=== PATIENT | female | born 1970 | race Hispanic/Latino ===

== ENCOUNTER → 2023-07-22 | Emergency (ER) | payer SELFPAY ==
[~2023-07-22] MED LIST: FAMOTIDINE 20 MG/2 ML VIAL IV ONE; KETOROLAC 30 MG/ML INJ ONE; METOCLOPRAMIDE 10 MG/2mL INJ ONE; MORPHINE 4 MG/ML SYR ONE; NA CHLORIDE 0.9% 2,000 ML ONE; ONDANSETRON 4 MG/2 ML VIAL ONE
--- OUTSIDE RECORDS SUMMARY | 2023-07-22 22:42 | XMS REPORT | Continuity of Care Document ---
Author Name Unknown Address [address] [facility] [address]. [address] [place] [address] [facility] thconnect Address [address] [facility]. [address] [place] [address] Care Team Providers Care Extension Service Agent Name Role Phone PCP, PATIENT DOES NOT HAVE A Primary Care Physic roxana Unavailable Amena Leyva LMSW Attending Clinician U SUBHA Crespo Attending Clinician Unavailable Pgy3 Attending Clinician Unavailable Subha Arthur MD Attending Clinician [phone] Doctor Unassigned, [place] Attending Clinician U Juliana Banks Attending Clinician [phone] LAURA HARRISON Attending Clinician Unavailable Pgy4 Attending Clinician Unavailable Laura Harrison MD Attending Clinician [phone] Payers Payer Name Policy Type Policy Number Effective Date Expirati on Date Source Problems Condition Name Condition Details Condition Category Status Onset Date Resolution Date Last Treatment Date Treating Clinician Comments Source Endometria l cancer Endometria l cancer Disease Active 2022-05 00:00: 00 [facility] Menstrual problem Menstrual problem Disease Active 10-20 00:00: 00 [facility] Allergies, Adverse Reactions, Alerts Allergy Name Allergy Type Status Severity Reaction(s) Onset Date Inactive Date Treating Clinician Comments Source NO KNOWN ALLERGIE S Drug Class Active [facility] Social History Social Habit Start Date Stop Date Quantity Comments Source [facility] 2023-04-11 00:00:00 2023-04-11 00:00:00 Current non-drinker of alcohol (finding) [facility] History of Social function 2023-04-11 00:00:00 2023-04-11 00:00:00 [facility] Tobacco use and exposure 2013-10-19 00:00:00 2013-10-19 00:00:00 Smokeless tobacco non-user [facility] Sex Assigned At 1970 00:00:00 1970 00:00:00 [facility] Smoking Status Start Date Stop Date Source Never smoked tobacco [facility] Medications Ordered Medication Name Filled Medication Name Start Date Stop Date Current Medication? Ordering Clinician Indication Dosage Frequency Signature (SIG) Comments Components Source levonorgest reL (MIRENA) IUD 1 Device 2022-05 20:45: 00 04-11 20:12 :56 No [id number] 1{devic e} [facility] levonorgest reL (MIRENA) IUD 1 Device 2022-05 20:45: 00 04-11 20:12 :56 No [id number] 1{devic e} [facility] levonorgest reL (MIRENA) IUD 1 Device 2022-05 20:45: 00 04-11 20:12 :56 No [id number] 1{devic e} [facility] levonorgest reL (LILETTA) IUD 1 Device 2022-05 20:30: 00 04-11 19:56 :14 No [id number] 1{devic e} [facility] levonorgest reL (LILETTA) IUD 1 Device 2022-05 2 20:30: 00 04-11 19:56 :14 No [id number] 1{devic e} [facility] levonorgest reL (LILETTA) IUD 1 Device 2022-05 20:30: 00 04-11 19:56 :14 No [id number] 1{devic e} [facility] megestroL 40 mg tablet 2022-05 2 00:00: 00 07-10 05:59 :00 No [id number] 80mg Take 2 tablets by mouth 4 (four) times daily [facility] megestroL 40 mg tablet 2022-05 00:00: 00 07-10 05:59 :00 No [id number] 80mg Take 2 tablets by mouth 4 (four) times daily [facility] megestroL 40 mg tablet 2022-05 00:00: 00 07-10 05:59 :00 No [id number] 80mg Take 2 tablets by mouth 4 (four) times daily [facility] megestroL 40 mg tablet 2022-05 00:00: 00 07-10 05:59 :00 No [id number] 80mg Take 2 tablets by mouth 4 (four) times daily [facility] Immunizations Ordered Immunization Name Filled Immunization Name Date Status Comments Source TDAP Unknown Completed [facility] TDAP Unknown Completed [facility] TDAP Unknown Completed [facility] TDAP Unknown Completed [facility] TDAP Unknown Completed [facility] TDAP Unknown Completed [facility] TDAP Unknown Completed [facility] TDAP Unknown Completed [facility] TDAP Unknown Completed [facility] TDAP Unknown Completed [facility] Vital Signs Vital Name Observation Time Observation Value Comments S daniel Systolic blood pressure 2023-04-11 19:27:00 119 mm[Hg] [facility] Diastolic blood pressure 2023-04-11 19:27:00 62 mm[Hg] [facility] Heart rate 2023-04-11 19:27:00 70 /min [facility] Body temperature 2023-04-11 19:27:00 35.78 Arabella [facility] Body height 2023-04-11 19:27:00 154.9 cm [facility] Body weight 2023-04-11 19:27:00 91.173 kg [facility] BMI 2023-04-11 19:27:00 37.98 kg/m2 [facility] Systolic blood pressure 2023-03-28 20:09:00 138 mm[Hg] [facility] Diastolic blood pressure 2023-03-28 20:09:00 87 mm[Hg] Sears o [facility] Heart rate 2023-03-28 20:09:00 75 /min [facility] Body temperature 2023-03-28 20:09:00 36 Arabella [facility] Respiratory rate 2023-03-28 20:09:00 20 /min [facility] Body height 2023-03-28 20:09:00 154.9 cm [facility] Body weight 2023-03-28 20:09:00 92.488 kg [facility] BMI 2023-03-28 20:09:00 38.53 kg/m2 [facility] Procedures Procedure Date / Time Performed Performing Clinicia n Source POCT TEST 2023-04-11 19:29:00 Subha Arthur [facility] EXTERNAL PROVIDER RECORDS 2023-04-11 06:01:00 Doctor Unassigned, [place] [facility] HIGH RISK HPV-THIN PREP 2023-03-28 21:00:00 Paula Valencia [facility] PAP SMEAR-LIQUID BASED-CP 2023-03-28 21:00:00 Paula Valencia [facility] CONSENT/REFUSAL FOR DIAGNOSIS AND TREATMENT 2023-03-28 19:37:07 Doctor Unassigned, [place] [facility] Encounters Start Date/Time End Date/Time Encounter Type Admission Type Attending Clinicians Care Facility Care Department Encounter ID Source 2023-07-03 11:19:27 2023-07-03 11:19:27 Outpatient SFA S[facility] [id number] [facility] 2023-05-15 00:00:00 2023-05-15 00:00:00 Patient Outreach [place] [facility] [id number] 350.1.13.10 4.2.7.2.686 [id number] [facility] 2023-04-11 13:00:00 2023-04-11 14:17:56 Outpatient R REID SUBHA [facility] [id number] [facility] 2023-04-11 13:00:00 2023-04-11 14:17:56 Office Visit Pgy3 CooksSubha [facility] [id number] 350.1.13.10 4.2.7.2.686 [id number] [facility] 2023-04-11 00:00:00 2023-04-11 00:00:00 Orders Only Doctor Unassigned, [place] [facility] 1.0.114 350.1.13.10 4.2.7.2.686 [id number] [facility] 2023-03-31 00:00:00 2023-03-31 00:00:00 Telephone Juliana Estrada [facility] 1..114 350.1.13.10 4.2.7.2.686 [id number] [facility] 2023-03-28 13:30:00 2023-03-28 14:59:49 Outpatient R LAURA HARRISON [facility] [id number] [facility] 2023-03-28 13:30:00 2023-03-28 14:59:49 Office Visit Pgy4 Laura Harrison [facility] 1..114 350.1.13.10 4.2.7.2.686 [id number] [facility] 2023-03-28 00:00:00 2023-03-28 00:00:00 Orders Only Doctor Unassigned, [place] [facility] 1.2840.114 350.1.13.10 4.2.7.2.686 [id number] [facility] 2023-03-26 11:58:37 2023-03-26 11:58:37 Outpatient SFA SFA [id number] [facility] 2023-03-20 10:27:25 2023-03-20 10:27:25 Outpatient SFA SFA [id number] [facility] 2023-03-12 11:20:21 2023-03-12 11:20:21 Outpatient SFA SFA [id number] [facility] 2023-03-11 14:32:02 2023-03-11 14:32:02 Outpatient SFA SFA [id number] [facility] 2023-03-05 14:58:40 2023-03-05 14:58:40 Outpatient SFA SFA [id number] [facility] 2023-03-03 09:11:36 2023-03-03 09:11:36 Outpatient SFA SFA 1023 [facility] 2023-02-26 11:40:55 2023-02-26 11:40:55 Outpatient SFA SFA [id number] [facility] 2023-02-06 09:34:26 2023-02-06 09:34:26 Outpatient SFA SFA 09 [facility] 2023-02-03 10:46:53 2023-02-03 10:46:53 Outpatient SFA SFA [id number] [facility] 2023-01-23 11:31:00 2023-01-23 11:31:00 Outpatient SFA SFA [id number] [facility] 2023-01-16 08:57:14 2023-01-16 08:57:14 Outpatient SFA SFA [id number] [facility]az[facility] 2023-01-09 09:10:27 2023-01-09 09:10:27 Outpatient SFA SFA 08 [facility] 2023-01-03 09:55:21 2023-01-03 09:55:21 Outpatient SFA SFA [id number] [facility] 2022-12-09 08:59:49 2022-12-09 08:59:49 Outpatient SFA SFA [id number] [facility]az[facility] 2022-10-24 08:24:29 2022-10-24 08:24:29 Outpatient [facility] [id number] Buck Bazan 2022-10-21 15:36:11 2022-10-21 15:36:11 Outpatient [facility] [id number] Buck Bazan 2022-09-28 11:31:31 2022-09-28 11:31:31 Outpatient [facility] 05 Buck Bazan 2022-09-26 09:44:03 2022-09-26 09:44:03 Outpatient [facility] [id number] Buck Bazan 2022-09-18 14:41:12 2022-09-18 14:41:12 Outpatient [facility] [id number] Buck Bazan 2022-03-27 14:31:56 2022-03-27 14:31:56 Outpatient [facility] [id number] Buck Bazan 2022-03-19 09:25:43 2022-03-19 09:25:43 Outpatient [facility] [id number] Buck Bazan 2022 08:17:39 2022 08:17:39 Outpatient [facility] [id number] Buck Bazan 2022-03-05 10:47:00 2022-03-05 10:47:00 Outpatient [facility] 1025 [facility] Bazan Results Test Description Test Time Test Comments Results Result Co mments Source [facility] [id number] 19:30:00* Test Item Value Reference Range Interpretation Comme nts POCT PREG (test code = 1605) Negative On board controls acceptable with C Line (test code = 3574) Yes POCT PREG LOT # (test code = 3575) POCT PREG TEST DATE ( test code = 3576) Lab Interpretation (test cod e = 73787-2) Normal [facility] [id number] 19:30:00* Test Item Value Reference Range Interpretation Comme nts POCT PREG (test code = 1605) Negative On board controls acceptable with C Line (test code = 3574) Yes POCT PREG LOT # (test code = 3575) POCT PREG TEST DATE ( test code = 3576) Lab Interpretation (test cod e = 54024-4) Normal [facility] [id number] 06:08:37* Test Item Value Reference Range Interpretation Comme nts CANCER ANTIGEN 125 (test code = 4824) 12.7 U/ML <=38.0 Note: Methodolog y is Augustin Babatunde Electrochemiluminscent immunoassay. UNLESS OTHERWISE INDICATED, ALL TESTING PERFORMED AT [facility] [employer] [address] [place] [address] CASE CHECKER: VINAY ENCARNACION M.D. CLIA NUMBER [id number] [place]. [id number] AFP, TUMOR [id number] 06:45:15* Test Item Value Reference Range Interpretation Comme nts AFP, TUMOR MARKER (test code = 70521) 4.49 NG/ML <=8.30 UNLESS OTHERWISE INDICATED, ALL TESTING PERFORMED AT [facility] [employer] [address] [place] [address] CASE CHECKER: VINAY ENCARNACION M.D. CLIA NUMBER [id number] [place]. [id number] HCG, [id number] 06:04:04* Test Item Value Reference Range Interpretation Comme nts HCG, QUANTITATIVE (test code = 2506) <5 MIU/ML SEE BELOW EXPECTED VALUES FOR HCG GST.AGE UNITS RANGE GST. AGE UNITS RANGE3 WEEKS MIU/ML 6-71 10 WEEKS MIU/ML 46,509-186,9774 WEEKS MIU/ML 10-750 12 WEEKS MIU/ML 27,832-210,6125 WEEKS MIU/ML 217-7,138 14 WEEKS MIU/ML 13,950-62,5306 WEEKS MIU/ML 158-31,795 15 WEEKS MIU/ML 12,039-70,9717 WEEKS MIU/ML 3,697-163,563 16 WEEKS MIU/ML 9,040-56,4518 WEEKS MIU/ML 32,065-149,571 17 WEEKS MIU/ML 8,175-55,8689 WEEKS MIU/ML 63,803-151,410 18 WEEKS MIU/ML 8,099-58,176MALES and NON- FEMALES . . . . . . . . MIU/ML 4-6PHGM-CRQVBENTHW FEMALES . . . . . . . . . . . . MIU/ML <=7 [id number] 06:58:34* Test Item Value Reference Range Interpretation Comments CEA (test code = 2645) <1.8 NG/ML <=3.8 In otherwise healthy smokers, 95% of patients fall in the rangeof 0.0-5.5 ng/mL. NOTE: Methodology is Augustin Babatunde ElectrochemiluminescenceImmunoassay (ECLIA). CANCER ANTIGEN [id number] 06:58:34* Test Item Value Reference Range Interpretation Comme nts CANCER ANTIGEN 125 (test code = 4824) 12.1 U/ML <=38.0 Note: Methodolog y is Augustin Babatunde Electrochemiluminscent immunoassay. UNLESS OTHERWISE INDICATED, ALL TESTING PERFORMED AT [facility] [address] [place] [address] CASE CHECKER: VINAY ENCARNACION M.D. CLIA NUMBER [id number] [facility] [place]. [id number] 05:24:08* Test Item Value Reference Range Interpretation Comme nts FERRITIN (test code = 2075) 126 NG/ML 13-200 COMPREHENSIVE METABOLIC [id number] 05:00:20* Test Item Value Reference Range Interpretation Comme nts GLUCOSE (test code = 2217) 96 MG/DL 70-99 BUN (test code = 2208) 11 MG/DL 6-20 CREATININE (test code = 2214) 0.58 MG/DL 0.60-1.30 L eGFR (2020 CKD-EPI) (test code = 62199) 109 ML/MIN/1.73 >60 CALC BUN/CREAT (test code = 2235) 19 RATIO 6-28 SODIUM (test code = 2231) 140 MEQ/L 133-146 POTASSIUM (test code = 2228) 4.2 MEQ/L 3.5-5.4 CHLORIDE (test code = 2215) 104 MEQ/L 95-107 CARBON DIOXIDE (test code = 2206) 26 MEQ/L 19-31 CALCIUM (test code = 2209) 9.4 MG/DL 8.5-10.5 PROTEIN, TOTAL (test code = 222) 7.2 G/DL 6.1-8.3 ALBUMIN (test code = 2200) 4.6 G/DL 3.5-5.2 CALC GLOBULIN (test code = 2239) 2.6 G/DL 1.9-3.7 CALC A/G RATIO (test code = 2233) 1.8 RATIO 1.0-2.6 BILIRUBIN, TOTAL (test code = 2206) 0.5 MG/DL <=1.2 ALKALINE PHOSPHATASE (test code = 2203) 84 U/L 40-130 AST (test code = 2217) 29 U/L 9-40 ALT (test code = 2218) 39 U/L 5-40 IRON BINDING CAPACITY AND IRON AND % [id number] 05:00:20* Test Item Value Reference Range Interpretation Comme nts IRON, SERUM (test code = 2221) 66 UG/DL 37-145 UNSATURATED IBC (test code = 28714) 248 UG/DL 112-347 CALC TOTAL IBC (test code = 2076) 314 UG/DL 250-450 CALC % IRON SAT (test code = 2078) 21 % 20-50 CBC W/AUTO DIFF WITH [id number] 02:01:09* Test Item Value Reference Range Interpretation Comme nts WBC (test code = 1001) 6.2 K/UL 3.5-11.0 RBC (test code = 1002) 4.71 M/UL 3.80-5.40 HEMOGLOBIN (test code = 1003) 13.6 G/DL 11.5-15.5 HEMATOCRIT (test code = 1004) 40.6 % 34.0-45.0 MCV (test code = 1005) 86.2 fL 80.0-99.0 MCH (test code = 1006) 28.9 PG 25.0-33.0 MCHC (test code = 1007) 33.5 G/DL 31.0-36.0 RDW (test code = 1038) 12.7 % 11.5-15.0 NEUTROPHILS (test code = 1008) 48.5 % LYMPHOCYTES (test code = 1010) 41.9 % MONOCYTES (test code = 1011) 4.8 % EOSINOPHILS (test code = 1012) 3.7 % BASOPHILS (test code = 1013) 0.8 % IMMATURE GRANULOCYTES (test code = 1036) 0.3 % NUCLEATED RBCS (test code = 1065) 0.0 /100 WBC'S See_Comment [Automated messa ge] The system which generated this result transmitted reference range: 0.0. The reference range was not used to interpret this result as normal/abnormal. PLATELET COUNT (test code = 1015) 300 K/UL 130-400 ABSOLUTE NEUTROPHILS (test code = 1066) 3.00 K/UL 1.50-7.50 ABSOLUTE LYMPHOCYTES (test code = 1067) 2.60 K/UL 1.00-4.00 ABSOLUTE MONOCYTES (test code = 1068) 0.30 K/UL 0.20-1.00 ABSOLUTE EOSINOPHILS (test code = 1040) 0.23 K/UL 0.00-0.50 ABSOLUTE BASOPHILS (test code = 1069) 0.05 K/UL 0.00-0.20 ABS IMMATURE GRANULOCYTES (test code = 1020) 0.02 K/UL 0.00-0.10 ABS NUCLEATED RBCS (test code = 62767) 0.00 K/UL 0.00-0.11 SURGICAL PATHOLOGY [id number] 09:10:27* Test Item Value Reference Range Interpretation Comme nts DIAGNOSIS: (test code = 8200) (NOTE) A) Biopsy - EndometriumEndometrioid adenocarcinoma, FIGO grade 1. COMMENTS: (test code = 8205) (NOTE) The findings in this case were communicated to Dr.Jones-Conley Leelee's shipping assistant, on 02/10/2023 at 0831. The slide representing this case has also been reviewed by Dr.Hong Yoder, who concurs with the diagnosis rendered on thisslide. Dr. Yoder also concurs that the accession number on theslide reviewed matches the accession number on the requisitionwhich bears the patient's name. MICROSCOPIC DESCRIPTION: (test code = 8210) (NOTE) A) Endometrial t issue is present with crowded glands lined bycolumnar cells with mild cytologic atypia, mitotic activity, andnuclear stratification. This shows glandular complexity andstromal changes. There is scant solid growth. Immunohistochemical testing (IHC) is used to determine thepresence or absence of protein expression for MLH-1, MSH-2,MSH-6, and PMS-2. Lymphocytes and normal epithelium exhibitstrong nuclear staining and serve as positive internal controlsfor staining of these proteins. External controls are alsoappropriately stained. RESULT: Intact nuclear expression of MLH-1, MSH-2, MSH-6, andPMS-2. INTERPRETATION: Results of IHC testing suggest the presence ofnormal DNA mismatch repair function. However, this does notcompletely rule out the possibility of defective DNA mismatchrepair because approximately 5-10% of cases with defectivemismatch repair show no absence of protein expression by IHC. This is due to mutations that can lead to non-functional proteinwith retained antigenicity. These results should not be considered in isolation, and clinicalcorrelation with genetic counseling is recommended to assess theneed for germline testing. CLINICAL DATA: (test code = 8401) (NOTE) Not specified GROSS DESCRIPTION: (test code = 8220) (NOTE) A) SPECIMEN L ABELED: EndometriumSIZE/WEIGHT: 1.9x1.2x0.3 cm AggregateSPECIMEN COLOR: BrownNUMBER OF TISSUE PIECES: multipleSUBMITTED IN CASSETTE(S): [id number]: FormalinCOMMENTS:Irregularly shaped tissue fragments with mucus and clotted blood. Filtered and entirely submitted. PATHOLOGIST: (test code = 8250) (NOTE) Jeimy Mata M.D., P h.D., Board Certified in Anatomic and ClinicalPathology, Cytopathology Specimens [facility] and [facility] at [facility], [address] [place] [address], , CLIA: [id number] DISCLAIMER (test code = 89212) (NOTE) IHC antibodies a re interpreted in the presence of appropriatelyfunctioning controls unless otherwise noted. CPT: (test code = 8400) (NOTE) 93968, [id number], 43296 UNLESS OTHERWISE INDICATED, ALL TESTING PERFORMED AT [facility] [address] [place] [address] CASE CHECKER: VINAY ENCARNACION M.D. CLIA NUMBER [id number] [facility] [place]. [id number] PAP TEST, THINPREP, [id number] 19:06:22* Test Item Value Reference Range Interpretation Comme nts SOURCE: (test code = 8001) Cervical/Endoc ervical SLIDES: (test code = 8011) 1 LMP: (test code = 8021) 01/26/2023 SPECIMEN ADEQUACY: (test code = 28391) (NOTE) Satisfactory for evaluation. Endocervical cells/transformation zone component present. INTERPRETATION: (test code = 34068) NILM/NO EPITH. ABNORMALITY;SE E BELOW - ------- NEGATIVE FOR INTRAEPITHELIAL LESION OR MALIGNANCY Reactive cellular changes present (NILM). OTHER COMMENTS: (test code = 8081) (NOTE) Atrophic watkins ges present. RV SERVICE TECHNICIAN: (test code = 8101) DANTE Dash(ASCP) PATHOLOGIST INTERPRETATION BY: (test code = 8122) Marya Acuna M.D. LOCATION: (test code = 96457) (NOTE) Specimens proces sed and interpreted at [facility] , [address] [place] [address], , CLIA: [id number] CPT: (test code = 8140) (NOTE) 08803, 64457 UNL ESS OTHERWISE INDICATED, COMPUTER AIDED AND RV SERVICE TECHNICIAN SCREENING PERFORMED. The Pap test is a screening test with an inherent, but low probability of error. Your patient should be reminded to consult you immediately if she experiences any suspicious signs or symptoms, regardless of her Pap test result. An alternate report format containing images or consolidated prior Pap history is available as applicable. HPV HIGH RISK WITH GENOTYPE, [id number] 17:49:43* Test Item Value Reference Range Interpretation Comme nts HPV HIGH RISK INTERP (test code = 35040) NEGATIVE NEGATIVE HPV 16 (test code = 23649) NEGATIVE HPV 18 (test code = 51912) NEGATIVE HPV, HR, OTHER GENOTYPES (test code = 69842) NEGATIVE Testing methodol ogy is real-time PCR utilizing hydrolysis probes with the [employer] 4800 system. The test individually detects genotypes 16 and 18, as well as the other 12 high risk types (31,33,35,39,45,51,52,56 ,58,59,66,68). The expected result is negative. A negative result does not rule out the presence of HPV not included in the genotype set, a low level of infection or specimen sampling error. UNLESS OTHERWISE INDICATED, ALL TESTING PERFORMED AT [facility] [employer] [address] [place] [address] CASE CHECKER: VINAY ENCARNACION M.D. CLIA NUMBER [id number] [place]. [id number] CULTURE, [id number] 10:23:30SPECIMEN NUMBER: [id number] CULTURE, URINE SPECIMEN NUMBER: [id number] SPECIMEN COMMENT: URINE SOURCE: URINE REPORT STATUS: FINAL ISOLATE NUMBER 1: ORGANISM: 01/05/2023 >100,000 CFU/ML GRAM NEGATIVE BACILLI IDENTIFICATION: 01/06/2023 ESCHERICHIA COLI E. COLI AMOXICILLIN/CA SENSITIVE <=8/4AMPICILLIN RESISTANT >16CEFAZOLIN SENSITIVE 4CEFTRIAXONE SENSITIVE <=1CIPROFLOXACININTERMED 2LEVOFLOXACIN SENSITIVE <=2NITROFURANTOIN SENSITIVE <=32PIP/TAZOBAC SENSITIVE <=16TETRACYCLINE RESISTANT >8TOBRAMYCIN SENSITIVE <=4TRIMETH/SULFA RESISTANT >2/38 NOTE: NUMBERS DISPLAYED REPRESENT MINIMUM INHIBITORY CONCENTRATION (TAMMY) WHICH IS EXPRESSED IN MCG/ML. UNLESS OTHERWISE INDICATED, ALL TESTING PERFORMED AT [facility] [address] [place] [address] CASE CHECKER: VINAY ENCARNACION M.D. CLIA NUMBER [id number] [place]. [id number]/NG, NAAT, [id number] 20:25:56* Test Item Value Reference Range Interpretation Comme nts CHLAMYDIA, NAAT, URINE (test code = 80681) NEGATIVE NEGATIVE Testing is perfo rmed with [employer] 6800/8800 systems usingreal-time polymerase chain reaction (PCR) method. A negative result does not exclude low level infection, specimensampling error, or collection error. GONORRHEA, NAAT, URINE (test code = 56869) NEGATIVE NEGATIVE Testing is perfo rmed with Augustin BABATUNDE 6800/8800 systems usingreal-time polymerase chain reaction (PCR) method. A negative result does not exclude low level infection, specimensampling error, or collection error. TSH, THIRD [id number] 05:27:06* Test Item Value Reference Range Interpretation Comme nts TSH, THIRD GENERATION (test code = 2821) 1.220 UIU/ML 0.400-4.100 HEPATITIS PANEL, [id number] 05:09:58* Test Item Value Reference Range Interpretation Comme nts HEPATITIS A IgM (test code = 10522) NON-REACTIVE NON-REACTIVE HEPATITIS B CORE IgM (test code = 4644) NON-REACTIVE NON-REACTIVE HEPATITIS B SURF AG (test code = 2739) NON-REACTIVE NON-REACTIVE HEPATITIS C ANTIBODY (test code = 4675) NON-REACTIVE NON-REACTIVE INTERPRETATION HEPATITIS A: (test code = 2552) (NOTE) Hepatitis A serology shows no evidence of acute hepatitis A. INTERPRETATION HEPATITIS B: (test code = 74169) (NOTE) Hepatitis B serology shows no evidence of acute hepatitis B andno indication of exposure to hepatitis B virus in the previous bret eight months. INTERPRETATION HEPATITIS C: (test code = 97938) (NOTE) Hepatitis C serology shows no evidence of exposure to hepatitisC virus at this time. It can take up to 12 months after exposure tothe hepatitis C virus for antibodies to become detectable in the blood in certain patients. HIV 1/2 4TH GEN, RFLX [id number] 05:09:58* Test Item Value Reference Range Interpretation Comme nts HIV 1/2 4TH GEN, RFLX CONF ( test code = 3514) NON-REACTIVE NON-REACTIVE RPR REFLEX TO T. PALLIDUM - [id number] 03:37:56* Test Item Value Reference Range Interpretation Comme nts RPR (test code = 31065) NON-REACTIVE NON-REACTIVE RPR TITER (test code = 3500) NOT INDIC. TITER NOT INDIC. CBC W/AUTO DIFF WITH [id number] 03:19:04* Test Item Value Reference Range Interpretation Comme nts WBC (test code = 1001) 4.4 K/UL 3.5-11.0 RBC (test code = 1002) 4.94 M/UL 3.80-5.40 HEMOGLOBIN (test code = 1003) 14.2 G/DL 11.5-15.5 HEMATOCRIT (test code = 1004) 42.0 % 34.0-45.0 MCV (test code = 1005) 85.0 fL 80.0-99.0 MCH (test code = 1006) 28.7 PG 25.0-33.0 MCHC (test code = 1007) 33.8 G/DL 31.0-36.0 RDW (test code = 1038) 12.7 % 11.5-15.0 NEUTROPHILS (test code = 1008) 43.7 % LYMPHOCYTES (test code = 1010) 46.0 % MONOCYTES (test code = 1011) 5.0 % EOSINOPHILS (test code = 1012) 4.1 % BASOPHILS (test code = 1013) 0.7 % IMMATURE GRANULOCYTES (test code = 1036) 0.5 % NUCLEATED RBCS (test code = 1065) 0.0 /100 WBC'S See_Comment [Automated message] The system which generated this result transmitted reference range: 0.0. The reference range was not used to interpret this result as normal/abnormal. PLATELET COUNT (test code = 1015) 295 K/UL 130-400 ABSOLUTE NEUTROPHILS (test code = 1066) 1.93 K/UL 1.50-7.50 ABSOLUTE LYMPHOCYTES (test code = 1067) 2.03 K/UL 1.00-4.00 ABSOLUTE MONOCYTES (test code = 1068) 0.22 K/UL 0.2-3.8 ABSOLUTE EOSINOPHILS (test code = 1040) 0.18 K/UL 0.00-0.50 ABSOLUTE BASOPHILS (test code = 1069) 0.03 K/UL 0.00-0.20 ABS IMMATURE GRANULOCYTES (test code = 1020) 0.02 K/UL 0.00-0.10 ABS NUCLEATED RBCS (test code = 10305) 0.00 K/UL 0.00-0.11 UNLESS OTHER ROTHMAN INDICATED, ALL TESTING PERFORMED AT [facility] [address] [place] [id number] CASE CHECKER: VINAY ENCARNACION M.D. CLIA NUMBER [id number] [facility] [place]. [id number] HEMOGLOBIN [id number] 03:13:08* Test Item Value Reference Range Interpretation Comme nts HEMOGLOBIN A1c (test code = 36555) 5.9 % 4.2-5.6 H [employer] GUIDELINES FOR HGB A1C: PREDIABETES/INCREASED RISK . . . . . . . 5.7-6.4% DIAGNOSIS OF DIABETES . . . . . . . . . >=6.5% WITH CONFIRMATION OR APPROPRIATE SYMPTOMS NOTE: ASSAY MAY BE AFFECTED BY HEMOGLOBINOPATHIES (SICKLE CELL ANEMIA, S-C DISEASE, OTHERS) OR ARTIFICIALLY LOWERED BY DECREASED RED CELL SURVIVAL (HEMOLYTIC ANEMIAS, BLOOD LOSS, ETC.). CONSIDER ALTERNATE TESTING OR LABORATORY CONSULTATION. COMPREHENSIVE METABOLIC [id number] 02:32:15* Test Item Value Reference Range Interpretation Comme nts GLUCOSE (test code = 2216) 106 MG/DL 70-99 H BUN (test code = 2207) 8 MG/DL 6-20 CREATININE (test code = 221) 0.47 MG/DL 0.60-1.30 L eGFR (2020 CKD-EPI) (test code = 99330) 115 ML/MIN/1.73 >60 CALC BUN/CREAT (test code = 2235) 17 RATIO 6-28 SODIUM (test code = 223) 138 MEQ/L 133-146 POTASSIUM (test code = 2228) 4.3 MEQ/L 3.5-5.4 CHLORIDE (test code = 2215) 103 MEQ/L 95-107 CARBON DIOXIDE (test code = 2206) 26 MEQ/L 19-31 CALCIUM (test code = 2209) 9.3 MG/DL 8.5-10.5 PROTEIN, TOTAL (test code = 222) 7.1 G/DL 6.1-8.3 ALBUMIN (test code = 220) 4.4 G/DL 3.5-5.2 CALC GLOBULIN (test code = 2240) 2.7 G/DL 1.9-3.7 CALC A/G RATIO (test code = 2234) 1.6 RATIO 1.0-2.6 BILIRUBIN, TOTAL (test code = 220) 0.5 MG/DL See_Comment [Automated me ssage] The system which generated this result transmitted reference range: <=1.2. The reference range was not used to interpret this result as normal/abnormal. ALKALINE PHOSPHATASE (test code = 4) 78 U/L 40-130 AST (test code = 2218) 24 U/L 9-40 ALT (test code = 2219) 28 U/L 5-40 LIPID [id number] 02:32:15* Test Item Value Reference Range Interpretation Comme nts CHOLESTEROL (test code = 2210) 200 MG/DL <200 H TRIGLYCERIDES (test code = 2232) 148 MG/DL <150 HDL CHOLESTEROL (test code = 2220) 49 MG/DL >39 CALC LDL CHOL (test code = 2237) 125 MG/DL <100 H NOTE: CALCULATED LDL IS BASED ON LUZ ELENA-MARRERO METHOD WHICHINCLUDES ADJUSTABLE TRIGLYCERIDE:VLDL CHOLESTEROL RATIO.THIS FACTOR VARIES BY MEASURED TRIGLYCERIDE AND NON-HDLCHOLESTEROL CONCENTRATIONS WITH INCREASED CALCULATED LDL SEENIN HIGHER TRIGLYCERIDE OR LOWER NON-HDL SPECIMENS. FOR MOREINFORMATION, SEE CLIENT ANNOUNCEMENT AT [email or web address] RISK RATIO LDL/HDL (test code = 2238) 2.55 RATIO <3.22 [id number] 04:05:48* Test Item Value Reference Range Interpretation Comme nts RPR RESULT (test code = 3501) NON-REACTIVE NON-REACTIVE RPR TITER (test code = 3500) NOT INDIC. TITER NOT INDIC. HEMOGLOBIN [id number] 04:02:02* Test Item Value Reference Range Interpretation Comme [facility] HEMOGLOBIN A1c (test code = 16126) 5.7 % 4.2-5.6 H VITAMIN [id number] 03:54:44* Test Item Value Reference Range Interpretation Comme nts VITAMIN B-12 (test code = 2840) >2000 PG/ML 200-950 H UNLESS OTHERWISE INDICATED, ALL [facility]ING [facility]FORMED [facility] [address] [place] [address] CASE CHECKER: HERMELINDA AGUIRRE M.D. CLIA NUMBER [id number] [facility] [place]. [id number] CBC W/AUTO DIFF WITH [id number] 03:27:05* Test Item Value Reference Range Interpretation Comme nts WBC (test code = 1001) 4.9 K/UL 3.5-11.0 RBC (test code = 1002) 4.65 M/UL 3.80-5.40 HEMOGLOBIN (test code = 1003) 13.4 G/DL 11.5-15.5 HEMATOCRIT (test code = 1004) 38.3 % 34.0-45.0 MCV (test code = 1005) 82.4 fL 80.0-99.0 MCH (test code = 1006) 28.8 PG 25.0-33.0 MCHC (test code = 1007) 35.0 G/DL 31.0-36.0 RDW (test code = 1038) 12.5 % 11.5-15.0 NEUTROPHILS (test code = 1008) 33.5 % LYMPHOCYTES (test code = 1010) 55.6 % MONOCYTES (test code = 1011) 6.4 % EOSINOPHILS (test code = 1012) 3.5 % BASOPHILS (test code = 1013) 0.8 % IMMATURE GRANULOCYTES (test code = 1036) 0.2 % NUCLEATED RBCS (test code = 1065) 0.0 /100 WBC'S See_Comment [Automated [employer] ge] The system which generated this result transmitted reference range: 0.0. The reference range was not used to interpret this result as normal/abnormal. PLATELET COUNT (test code = 1015) 247 K/UL 130-400 ABSOLUTE NEUTROPHILS (test code = 1066) 1.63 K/UL 1.50-7.50 ABSOLUTE LYMPHOCYTES (test code = 1067) 2.71 K/UL 1.00-4.00 ABSOLUTE MONOCYTES (test code = 1068) 0.31 K/UL 0.20-1.00 ABSOLUTE EOSINOPHILS (test code = 1040) 0.17 K/UL 0.00-0.50 ABSOLUTE BASOPHILS (test code = 1069) 0.04 K/UL 0.00-0.20 ABS IMMATURE GRANULOCYTES (test code = 1020) 0.01 K/UL 0.00-0.10 ABS NUCLEATED RBCS (test code = 52575) 0.00 K/UL 0.00-0.11
[2023-07-22 23:43] LABS: Absolute Eosinophils 0.2 K/uL (0-0.5); Absolute Lymphocytes (CBC) 2.2 K/uL (0.7-4.9); Basophils % 0.7 % (0-1.3); Eosinophils % 3.3 % (0-4.4); Hematocrit 39.6 % (36.0-45.0); Hemoglobin 13.4 g/dL (12.0-15.0); MCV 84.7 fL (80-100); MPV 7.6 fL (7.6-11.3); Platelets 291 thou/uL (152-406); RBC Red Blood Cell Count 4.68 M/uL (3.86-4.86)
[2023-07-23 00:04] LABS: Albumin 3.7 g/dL (3.4-5.0); Anion Gap 7.2 mEq/L (5.0-15.0); Bilirubin Total 0.3 mg/dL (0.2-1.0); Globulin 3.8 g/dL (2.3-3.5); Potassium 4.2 mEq/L (3.5-5.1); Protein, Total 7.5 g/dL (6.4-8.2)
[2023-07-23 00:08] LABS: Specific Gravity 1.023 (1.005-1.030); Urine Bacteria None Seen /HPF (<20); Urine Bilirubin NEGATIVE (Negative); Urine Blood Negative (Negative); Urine Clarity Clear (Clear); Urine Color Light-Yellow (Yellow); Urine Glucose NEGATIVE (Negative); Urine Mucus Slight /HPF (None Seen); Urine Protein NEGATIVE (Negative); Urine RBC None Seen /HPF (None Seen); Urine Urobilinogen Normal (Normal)
--- NOTE | 2023-07-23 01:55 | EDPHYS ---
Physician Documentation [facility] Name: Etta Ball Age: 53 yrs Sex: Female : 1970 Arrival Date: 07/22/2023 Time: 22:37 Bed 4 Private MD: ED Physician Srinivas Dukes HPI: 07/21 22:45 This 53 yrs old Female presents to ER via Unassigned with complaints of sp4 Abdominal Pain. 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 - Social history:: Smoking status: Patient denies any tobacco usage or history of. Patient/guardian denies using alcohol, street drugs. Vital Signs: 23:00 BP 153 / 83; Pulse 63; Resp 16 S; Temp 97.2(TE); Pulse Ox 99% on R/A; Weight 86.18 kg lg3 (R); Height 5 ft. 1 in. (R); Pain 10/10; 23:34 BP 167 / 95; Pulse 63; Resp 18; Pulse Ox 99% on R/A; km8 07/22 00:00 BP 114 / 79; Pulse 65; Resp 18; Pulse Ox 97% on R/A; Pain 3/10; km8 01:34 BP 143 / 93; Pulse 76; Resp 18; Pulse Ox 100% on R/A; km8 01:55 BP 137 / 91; Pulse 75; Resp 18; Pulse Ox 98% on R/A; km8 07/21 23:00 Body Mass Index 35.90 (86.18 kg, 154.94 cm) 3 07/21 23:00 Pain Scale: Adult lg3 07/22 00:00 Pain Scale: Adult km8 Issa Coma Score: 07/21 23:34 Eye Response: spontaneous(4). Motor Response: obeys commands(6). Verbal Response: km8 oriented(5). Total: 15. MDM: 22:46 Patient medically screened. sp4 07/22 01:39 ED course: FINDINGS: Lung bases: The lung bases demonstrate to be clear. Liver: The sp4 liver demonstrated presence of decreased attenuation corresponding to fatty infiltration. There is a enhancing lesion posterior segment right hepatic lobe on image 15 perhaps corresponding to a flash hemangioma. Gallbladder: The gallbladder demonstrates presence of minimal enhancement of the gallbladder wall and gallbladder wall thickening on axial image [id number]. Adrenal glands: The adrenal glands demonstrate to be normal. Pancreas: The pancreas demonstrate to be normal. Spleen: The spleen demonstrate to be within normal limits. Kidneys: The kidneys demonstrate normal uptake of contrast media. There is no evidence for nephrolithiasis and/or hydronephrosis. GI: Grossly the unopacified stomach, small bowel and large bowel demonstrate to be within normal limits. No evidence for bowel dilatation and/or free air. The appendix was suboptimal in evaluation. The left-sided colon demonstrate to be decompressed with no gross abnormalities. : The urinary bladder demonstrate to be unremarkable. Genitalia: The uterus is absent. There are no adnexal masses. Abdominal aorta: The aorta demonstrate to be within normal limits. Retroperitoneum:There is no retroperitoneal lymphadenopathy. There is no evidence for ascites and/or abnormal fluid collections. Bones: The bony structures demonstrate to be within normal limits. Soft tissues: The rest of the soft tissue and bony structures are within normal limits. IMPRESSION: Minimal enhancement of the gallbladder wall and gallbladder wall thickening, and light of results of right upper quadrant ultrasound performed 07/22/2023 possibility of acute cholecystitis cannot be excluded. Consider HIDA scan for further evaluation. Fatty infiltration of the liver. Enhancing lesion posterior segment right hepatic lobe perhaps corresponding to a flash hemangioma. Status post hysterectomy. Electronically signed by: Benjamin Reynoso MD 07/23/2023 01:31 AM. 01:40 ED course: CLINICAL HISTORY: ABD PAIN COMPARISON: None. TECHNIQUE: US ABDOMEN LIMITED sp4 07/22/2023 11:34 PM CDT FINDINGS: The liver is highly echogenic. Gallbladder contains multiple gallstones without wall thickening or pericholecystic fluid. Common bile duct measures 5 mm. IMPRESSION: Cholelithiasis. . 01:52 Differential Diagnosis altered mental status, sepsis, flu, abdominal pain . Data sp4 reviewed: vital signs, nurses notes, old medical records, lab test result(s), radiologic studies, CT scan, ultrasound. Consideration of Admission/Observation Escalation of care including admission/observation considered. ED course: Patient has at this time clinically no acute signs of cholecystitis but signs of biliary colic that is recurrent secondary to cholelithiasis. Patient is stable for discharge home with Phenergan and Tylenol No. 4. Will refer patient to local surgeon for cholecystectomy. Patient's reports and images were provided for her. Patient was explained via major sales associate. . 07/21 22:46 Order name: CBC with Diff; Complete Time: 01:37 sp4 07/21 22:46 Order name: CMP; Complete Time: :37 sp4 07/21 22:46 Order name: Lipase; Complete Time: :37 sp4 07/21 22:46 Order name: Urinalysis w/ reflexes; Complete Time: 01:37 sp4 07/21 22:59 Order name: CT Abd/Pelvis - IV Contrast Only [facility] 07/21 23:34 Order name: US Abdomen Limited [facility] 07/21 22:46 Order name: IV Saline Lock; Complete Time: 23:32 sp4 07/21 22:46 Order name: Labs collected and sent; Complete Time: 23:32 sp4 Administered Medications: 07/21 23:32 Drug: NS 0.9% IV 1000 ml IV at 1 bolus Per protocol; 1000 mL bolus Route: IV; Rate: 1 km8 bolus; Site: left antecubital; 07/22 01:58 Follow up: IV Status: Completed infusion; IV Intake: 1000ml [facility] 07/21 23:32 Drug: NS 0.9% IV 1000 ml IV at 125 ml/hr continuous Route: IV; Rate: 125 ml/hr; Site: [facility] left antecubital; 07/22 01:59 Follow up: IV Status: Completed infusion; IV Intake: 300ml [facility] 07/21 23:32 Drug: Ondansetron IVP 8 mg IVP once; over 2 minutes Route: IVP; Site: left antecubital; [facility] 07/22 00:34 Follow up: Response: No adverse reaction; Nausea is decreased [facility] 07/21 23:32 Drug: morphine IVP or IV 4 mg IVP once over 4 mins Route: IVP; Infused Over: 4 mins; [facility] Site: left antecubital; 07/22 00:33 Follow up: Response: No adverse reaction; Pain is decreased [facility] 07/21 23:32 Drug: Ketorolac IVP 30 mg IVP once Route: IVP; Site: left antecubital; [facility] 07/22 00:33 Follow up: Response: No adverse reaction; Pain is decreased [facility] 07/21 23:32 Drug: metoCLOPramide IVP 10 mg IVP once; over 1 to 2 minutes Route: IVP; Site: left [facility] antecubital; 07/22 00:33 Follow up: Response: No adverse reaction [facility] 07/21 23:32 Drug: Famotidine IVP 20 mg IVP once; dilute with 10 mL 0.9% NaCl; give over 2 minutes [facility] Route: IVP; Site: left antecubital; 07/22 00:33 Follow up: Response: No adverse reaction; Pain is decreased [facility] Disposition Summary: 07/23/23 01:54 Discharge Ordered Problem: new sp4 Symptoms: have improved sp4 Condition: Stable sp4 Diagnosis - Other cholelithiasis without obstruction sp4 - Right upper quadrant abdominal pain with vomiting, biliary colic sp4 Followup: sp4 - With: Jerad Aponte MD - When: 7 - 10 days - Reason: Recheck today's complaints Discharge Instructions: - Discharge Summary Sheet sp4 - Cholelithiasis, [id number] sp4 Forms: - Patient Portal Instructions sp4 Prescriptions: - acetaminophen-codeine 300-60 mg Oral tablet - take 1 tablet ORAL route every 4 hours PRN pain; 25 tablet; Refills: 0, Product sp4 Selection Permitted - Ibuprofen 800 mg Oral Tablet - take 1 tablet ORAL route every 8 hours As needed take with food; 30 tablet; sp4 Refills: 0, Product Selection Permitted - promethazine 25 mg Oral tablet - take 1 tablet ORAL route every 6 hours As needed PRN nausea; 30 tablet; sp4 Refills: 0, Product Selection Permitted Signatures: Dispatcher [employer] Lianne Spivey RN RN lg3 Srinivas Dukes MD MD sp4 Katharina Sweeney RN RN km8
--- NOTE | 2023-07-23 01:55 | ER ---
Nurse's Notes [facility] Name: Etta Ball Age: 53 yrs Sex: Female : 1970 Arrival Date: 07/22/2023 Time: 22:37 Bed 4 Private MD: Diagnosis: Other cholelithiasis without obstruction;Right upper quadrant abdominal pain with vomiting, biliary colic Presentation: 07/21 23:00 Chief complaint: Patient states: epigastric pain radiating to right rib and back with lg3 nausea and vomiting. pain 10/10. Coronavirus screen: Client denies travel out of the [place] in the last 14 days. At this time, the client does not indicate any symptoms associated with coronavirus-19. Ebola Screen: No symptoms or risks identified at this time. Initial Sepsis Screen: Does the patient meet any 2 criteria? No. Patient's initial sepsis screen is negative. Does the patient have a suspected source of infection? No. Patient's initial sepsis screen is negative. Risk Assessment: Do you want to hurt yourself or someone else? Patient reports no desire to harm self or others. Onset of symptoms was July 22, 2023. 23:00 Method Of Arrival: Wheelchair lg3 23:00 Acuity: TESHA 3 lg3 Triage Assessment: 23:02 General: Appears in no apparent distress. uncomfortable, Behavior is calm, cooperative. lg3 Pain: Complains of pain in epigastric area Pain radiates to back. EENT: No deficits noted. No signs and/or symptoms were reported regarding the EENT system. Neuro: No deficits noted. [place] Agitation-Sedation Scale (RASS): 0 - Alert and Calm Level of Consciousness is awake, alert, obeys commands, Oriented to person, place, time, situation. Cardiovascular: No deficits noted. Denies chest pain, shortness of breath, Capillary refill < 3 seconds Clubbing of nail beds is absent JVD is absent Patient's skin is warm and dry. Respiratory: No deficits noted. Airway is patent Respiratory effort is even, unlabored, Respiratory pattern is regular, symmetrical. GI: No deficits noted. Abdomen is round non-distended, obese, Reports upper abdominal pain, cramping, nausea, vomiting. : No deficits noted. No signs and/or symptoms were reported regarding the genitourinary system. Derm: No deficits noted. No signs and/or symptoms reported regarding the dermatologic system. Skin is intact, is healthy with good turgor, Skin is dry, Skin is normal, Skin temperature is warm. Musculoskeletal: No deficits noted. No signs and/or symptoms reported regarding the musculoskeletal system. Circulation, motion, and sensation intact. Range of motion: intact in all extremities. 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 - Social history:: Smoking status: Patient denies any tobacco usage or history of. Patient/guardian denies using alcohol, street drugs. Screenin:34 [facility] ED Fall Risk Assessment (Adult) History of falling in the last 3 months, km8 including since admission No falls in past 3 months (0 pts) Confusion or Disorientation No (0 pts) Intoxicated or Sedated No (0 pts) Impaired Gait No (0 pts) Mobility Assist Device Used No (0 pt) Altered Elimination No (0 pt) Score/Fall Risk Level 0 - 2 = Low Risk Oriented to surroundings, Maintained a safe environment, Educated pt \T\ family on fall prevention, incl call for assistance when getting out of bed, Assessed \T\ reinforced patient's understanding of fall precautions. Abuse screen: Denies threats or abuse. Denies injuries from another. Nutritional screening: No deficits noted. Tuberculosis screening: No symptoms or risk factors identified. Assessment: 23:34 General: Appears in no apparent distress. uncomfortable, Behavior is calm, cooperative, km8 appropriate for age. Pain: Complains of pain in epigastric area Pain radiates to back Pain currently is 9 out of 10 on a pain scale. Neuro: Level of Consciousness is awake, alert, obeys commands, Oriented to person, place, time, situation. Cardiovascular: Denies chest pain, shortness of breath, Patient's skin is warm and dry. Respiratory: Airway is patent Respiratory effort is even, unlabored, Respiratory pattern is regular, symmetrical. GI: Abdomen is obese, Bowel sounds present X 4 quads. Abdomen is tender to palpation in epigastric area and right upper quadrant Reports nausea, vomiting. : No signs and/or symptoms were reported regarding the genitourinary system. EENT: No signs and/or symptoms were reported regarding the EENT system. Derm: Skin is intact, is healthy with good turgor, Skin is dry, Skin is pink, warm \T\ dry. normal, Skin temperature is warm. Musculoskeletal: No signs and/or symptoms reported regarding the musculoskeletal system. Range of motion: intact in all extremities. 07/22 00:30 Reassessment: pt at CT at this time. km8 01:34 Reassessment: Patient appears in no apparent distress at this time. Patient and/or km8 family updated on plan of care and expected duration. Pain level reassessed. Patient is alert, oriented x 3, equal unlabored respirations, skin warm/dry/pink. Patient states feeling better. Patient states symptoms have improved. Vital Signs: 07/21 23:00 BP 153 / 83; Pulse 63; Resp 16 S; Temp 97.2(TE); Pulse Ox 99% on R/A; Weight 86.18 kg lg3 (R); Height 5 ft. 1 in. (R); Pain 10/10; 23:34 BP 167 / 95; Pulse 63; Resp 18; Pulse Ox 99% on R/A; km8 07/22 00:00 BP 114 / 79; Pulse 65; Resp 18; Pulse Ox 97% on R/A; Pain 3/10; km8 01:34 BP 143 / 93; Pulse 76; Resp 18; Pulse Ox 100% on R/A; km8 01:55 BP 137 / 91; Pulse 75; Resp 18; Pulse Ox 98% on R/A; km8 07/21 23:00 Body Mass Index 35.90 (86.18 kg, 154.94 cm) lg3 07/21 23:00 Pain Scale: Adult lg3 07/22 00:00 Pain Scale: Adult km8 [place] Coma Score: 07/21 23:34 Eye Response: spontaneous(4). Motor Response: obeys commands(6). Verbal Response: km8 oriented(5). Total: 15. ED Course: 22:42 Patient arrived in ED. gm2 22:45 Potepalov, Srinivas, MD is Attending Physician. sp4 23:02 Triage completed. lg3 23:02 Arm band placed on right wrist. lg3 23:09 Radiology exam delayed due to IV insertion attempt and/or patient not having eh4 appropriate IV at this time. 23:15 Inserted saline lock: 22 gauge in left antecubital area, using aseptic technique. Blood km8 collected. 23:15 Initial lab(s) drawn, by ED staff, sent to lab. Urine collected: clean catch specimen, km8 clear. 23:16 Katharina Sweeney, SHELBY is Primary Nurse. km8 23:32 CBC with Diff Sent. km8 23:32 CMP Sent. km8 23:32 Lipase Sent. km8 23:32 Urinalysis w/ reflexes Sent. km8 23:34 Patient has correct armband on for positive identification. Bed in low position. Call km8 light in reach. Side rails up X2. Pulse ox on. NIBP on. Warm blanket given. 23:34 Patient maintains SpO2 saturation greater than 95% on room air. km8 23:40 Radiology exam delayed due to lab results not completed at this time. (BUN/Creatinine). eh4 23:49 US Abdomen Limited In Process Unspecified. EDMS 07/22 00:50 CT Abd/Pelvis - IV Contrast Only In Process Unspecified. EDMS 01:54 Jerad Aponte MD is Referral Physician. sp4 01:56 Provided Education on: d/c teaching. km8 01:56 No provider procedures requiring assistance completed. km8 01:56 IV discontinued, intact, bleeding controlled, No redness/swelling at site. Pressure km8 dressing applied. Administered Medications: 07/21 23:32 Drug: NS 0.9% IV 1000 ml IV at 1 bolus Per protocol; 1000 mL bolus Route: IV; Rate: 1 km8 bolus; Site: left antecubital; 07/22 01:58 Follow up: IV Status: Completed infusion; IV Intake: 1000ml [facility] 07/21 23:32 Drug: NS 0.9% IV 1000 ml IV at 125 ml/hr continuous Route: IV; Rate: 125 ml/hr; Site: [facility] left antecubital; 07/22 01:59 Follow up: IV Status: Completed infusion; IV Intake: 300ml [facility] 07/21 23:32 Drug: Ondansetron IVP 8 mg IVP once; over 2 minutes Route: IVP; Site: left antecubital; km8 07/22 00:34 Follow up: Response: No adverse reaction; Nausea is decreased km8 07/21 23:32 Drug: morphine IVP or IV 4 mg IVP once over 4 mins Route: IVP; Infused Over: 4 mins; km8 Site: left antecubital; 07/22 00:33 Follow up: Response: No adverse reaction; Pain is decreased 8 07/21 23:32 Drug: Ketorolac IVP 30 mg IVP once Route: IVP; Site: left antecubital; km8 07/22 00:33 Follow up: Response: No adverse reaction; Pain is decreased 8 07/21 23:32 Drug: metoCLOPramide IVP 10 mg IVP once; over 1 to 2 minutes Route: IVP; Site: left [facility] antecubital; 07/22 00:33 Follow up: Response: No adverse reaction 8 07/21 23:32 Drug: Famotidine IVP 20 mg IVP once; dilute with 10 mL 0.9% NaCl; give over 2 minutes km8 Route: IVP; Site: left antecubital; 07/22 00:33 Follow up: Response: No adverse reaction; Pain is decreased km8 Medication: 07/21 23:34 VIS not applicable for this client. km8 Intake: 07/22 01:58 IV: 1000ml; Total: 1000ml. km8 01:59 IV: 300ml; Total: 1300ml. km8 Outcome: 01:54 Discharge ordered by . sp4 02:09 Discharged to home ambulatory, with family, km8 02:09 Condition: good 02:09 Discharge instructions given to patient, family, Instructed on discharge instructions, follow up and referral plans. medication usage, Demonstrated understanding of instructions, follow-up care, medications, Prescriptions given X 3, 02:09 Patient left the ED. km8 Signatures: Dispatcher [employer] EDMS Lianne Dupont, RN RN 3 Leanna Moya [facility] Srinivas Dukes MD MD sp4 Keesha Garcia 2 Katharina Sweeney RN RN km8
[2023-07-23 02:22] VITALS: BP 137/91; TEMP 97.2; O2SAT 98
--- NOTE | 2023-07-23 18:38 | RAD REPORT ---
EXAM DESCRIPTION: Abdomen Pelvis W Contrast 07/23/2023 1:26 AM CDT CLINICAL HISTORY: 53 years, Female, epigastric and right flank pain COMPARISON: 07/12/2023, previous right upper quadrant ultrasound performed 07/22/2023-07/12/2023 TECHNIQUE: Contrast-enhanced images of the abdomen and pelvis were performed utilizing 5 mm slice th ickness at 5 mm interval reconstruction from the lung bases to the ischial tuberosities after the adm inistration of IV contrast. In addition multiplanar reformats in the coronal and sagittal plane were obtained and reviewed. An individualized dose optimization technique, Automated Exposure Control, was utilized for the perfo rmed procedure. FINDINGS: Lung bases: The lung bases demonstrate to be clear. Liver: The liver demonstrated presence of decreased attenuation corresponding to fatty infiltration. There is a enhancing lesion posterior segment right hepatic lobe on image 15 perhaps corresponding to a flash hemangioma. Gallbladder: The gallbladder demonstrates presence of minimal enhancement of the gallbladder wall and gallbladder wall thickening on axial image [id number]. Adrenal glands: The adrenal glands demonstrate to be normal. Pancreas: The pancreas demonstrate to be normal. Spleen: The spleen demonstrate to be within normal limits. Kidneys: The kidneys demonstrate normal uptake of contrast media. There is no evidence for nephroli thiasis and/or hydronephrosis. GI: Grossly the unopacified stomach, small bowel and large bowel demonstrate to be within normal limi ts. No evidence for bowel dilatation and/or free air. The appendix was suboptimal in evaluation. The left-sided colon demonstrate to be decompressed with no gross abnormalities. : The urinary bladder demonstrate to be unremarkable. Genitalia: The uterus is absent. There are no adnexal masses. Abdominal aorta: The aorta demonstrate to be within normal limits. Retroperitoneum: There is no retroperitoneal lymphadenopathy. There is no evidence for ascites and/or abnormal fluid collections. Bones: The bony structures demonstrate to be within normal limits. Soft tissues: The rest of the soft tissue and bony structures are within normal limits. IMPRESSION: Minimal enhancement of the gallbladder wall and gallbladder wall thickening, and light o f results of right upper quadrant ultrasound performed 07/22/2023 possibility of acute cholecystitis c annot be excluded. Consider HIDA scan for further evaluation. Fatty infiltration of the liver. Enhancing lesion posterior segment right hepatic lobe perhaps corresponding to a flash hemangioma. Status post hysterectomy. Electronically signed by: Benjamin Reynoso MD 07/23/2023 01:31 AM CDT Due to temporary technical issues with the PACS/Fluency reporting system, reports are being signed by the in house radiologists without review as a courtesy to insure prompt reporting. The interpreting radiologist is fully responsible for the content of the report.
--- NOTE | 2023-07-23 18:41 | RAD REPORT ---
EXAM DESCRIPTION: US Abdomen Limited, gallbladder CLINICAL HISTORY: The patient is 53 years old and is Female; GB Eval;Abd pain Bed Name: 14 TECHNIQUE: Real-time ultrasound of the gallbladder fossa with image documentation. COMPARISON: 07/12/2023 CT abdomen pelvis with contrast FINDINGS: GALLBLADDER: Evaluation of the gallbladder degraded secondary to adjacent gas-filled loo ps of bowel. Multiple posterior shadowing stones demonstrated within the gallbladder lumen. Reported negative sonographic Ceballos sign. No wall thickening or pericholecystic free fluid. COMMON BILE DUCT: Unremarkable as visualized. No stones. No dilation. Common bile duct measures 0.6 cm in diameter. IMPRESSION: Cholelithiasis without sonographic evidence of acute cholecystitis. If there is high clinical suspicion for acute cholecystitis, or to evaluate for chronic cholecystitis or biliary dyskinesia, further evaluation by HIDA scan could be performed. Electronically signed by: Sai Deng MD 07/12/2023 04:47 AM [employer] Due to temporary technical issues with the PACS/Fluency reporting system, reports are being signed by the in house radiologists without review as a courtesy to insure prompt reporting. The interpreting radiologist is fully responsible for the content of the report.
== END ==
LOC: ER 22:37
DX: K80.80 Other cholelithiasis without obstruction (principal); K80.50 Calculus of bile duct without cholangitis or cholecystitis without obstruction
CPT/HCPCS: 36415; 74177; 76705; 80053; 81001; 83690; 85025; J2405; J2765; J7030; Q9967